=== PATIENT | female | born 1980 | race American Indian/Alaskan Native ===

== ENCOUNTER 2016-11-14 15:18 | Emergency (ER) | payer OTHER ==
[2016-11-14 15:25] VITALS: BP 142/95
== END 2016-11-15 00:55 | disposition left against medical advice (07) ==
LOC: ED 15:18
DX: M54.2 Cervicalgia (principal); M54.9 Dorsalgia, unspecified; M79.602 Pain in left arm; Z53.21 Procedure and treatment not carried out due to patient leaving prior to being seen by health care provider